=== PATIENT | female | born 1960 | race Caucasian/White ===

== ENCOUNTER → 2019-02-07 | Outpatient (CLI) | payer BC ==
--- NOTE | 2019-02-07 14:02 | Diagnostic Imaging Report ---
INDICATION: Abdominal pain and cramping. TIME OF EXAMINATION: 1:49 PM. FINDINGS: Moderate stool throughout the colon is noted. The bowel gas pattern appears to be nonobstructed. No free air is identified. No pathologic calcifications are seen. IMPRESSION: Moderate stool. The study is otherwise unremarkable. Dictated by: Dictated on workstation # [id number]
== END ==
LOC: RAD FS 13:37
PROVIDERS: ATTEND Nurse Practitioner Family
DX: R10.84 Generalized abdominal pain (principal); R25.2 Cramp and spasm
CPT/HCPCS: 74019

== ENCOUNTER → 2019-08-02 | Outpatient (CLI) | payer BC ==
--- NOTE | 2019-08-02 17:43 | Diagnostic Imaging Report ---
INDICATION: Leg pain on the right. TIME OF EXAM: 01:57 p.m. FINDINGS: Frontal and lateral views of the lumbar spine were obtained. Curvature and alignment is normal. Vertebral body heights are maintained. No acute compression fracture is seen. There is significant multilevel degenerative disc disease with variable disc space narrowing and marginal spurring. There is vacuum disc at all levels. Lower lumbar facet arthropathy is seen. Abdominal aorta is partially calcified. IMPRESSION: Lumbar spondylosis. No acute bony abnormality is detected. Dictated by: Dictated on workstation # [id number]
== END ==
LOC: RAD FS 13:43
PROVIDERS: ATTEND Nurse Practitioner
DX: M47.816 Spondylosis without myelopathy or radiculopathy, lumbar region (principal)
CPT/HCPCS: 72100

== ENCOUNTER → 2020-11-21 | Outpatient (CLI) | payer OTHER ==
--- NOTE | 2020-11-21 15:43 | Diagnostic Imaging Report ---
CLINICAL INDICATION: Patient is having right hip and back pain. EXAM: MRI of the lumbar spine performed without IV contrast. Sagittal T2, sagittal T1, sagittal T2 fat-sat, and axial T2. COMPARISON: X-ray of the lumbar spine dated 08/02/2019. FINDINGS: There is no acute lumbar spine fracture. There are Modic type I degenerative signal changes involving the L2-L3 endplate and L3-L4 endplates. There are hypertrophic spurs throughout the lumbar spine and multilevel facet arthropathy. There is no significant paraspinal soft tissue abnormality. The visualized portions of the distal thoracic spinal cord, conus medullaris, and cauda equina nerve roots are unremarkable. The conus medullaris tip is seen at the L1-L2 intervertebral level. T10 through L1: There are multilevel diffuse disk bulges seen at the T10-T11, T11-T12, and T12-L1 levels. There is mild central canal narrowing. There is moderate bilateral T10-T11 neuroforamen narrowing and facet arthropathy. There is no significant bony neuroforamen narrowing involving the T11-T12 and T12-L1 levels. L1-L2: There is mild bilateral facet arthropathy. There is no significant central spinal canal or neural foramen narrowing. L2-L3: There is grade 1 retrolisthesis of L2 on L3. There is a diffuse disk bulge with severe loss of disk space height and endplate irregularity. There is moderate bilateral facet arthropathy and ligamentum flavum buckling. There is severe central canal stenosis, moderate right neuroforamen narrowing, and severe left neuroforamen narrowing. L3-L4: There is diffuse disk bulge with mild loss of disk space height and moderate bilateral facet arthropathy. There is prominence of the posterior epidural fat. There is moderate central canal stenosis. There is [id number] bilateral neuroforamen narrowing. L4-L5: There is a diffuse disk bulge with moderate loss of disk space height. There is severe right facet arthropathy/hypertrophy and moderate left facet arthropathy. There is severe central canal stenosis, severe right neuroforamen narrowing, and [id number] left neuroforamen narrowing. L5-S1: There is grade 1 retrolisthesis of L5 on S1. There is a diffuse disk bulge with severe loss of disk space height. There is moderate bilateral facet arthropathy. There is ligamentum flavum buckling. There is no significant central canal stenosis. There is severe bilateral neuroforamen narrowing. IMPRESSION: 1: There is severe multilevel lumbar spine degenerative disk disease which is described in detail above. 2: There is grade 1 retrolisthesis of L2 on L3. Dictated by: Dictated on workstation # [id number]
--- NOTE | 2020-11-21 15:50 | Diagnostic Imaging Report ---
EXAMINATION: MRI right hip without contrast from 11/21/2020. TECHNIQUE: Multiplanar, multisequence non contrast-enhanced MRI of the right lower extremity was accomplished. INDICATION: Right hip pain, low back pain. FINDINGS: The osseous structures demonstrate normal signal intensity with no fractures or acute abnormality appreciated. The hip joint spaces bilaterally are symmetric and intact. No significant joint effusions appreciated. The visualized tendons are intact. Visualized musculature is within normal limits. Visualized intrapelvic structures are unremarkable. The labrum is poorly characterized without intra-articular contrast. IMPRESSION: 1. No acute abnormality. Unremarkable appearance of the hip. Dictated by: Dictated on workstation # [id number]
== END ==
LOC: RAD 13:15
PROVIDERS: ATTEND Pediatrics
DX: M51.17 Intervertebral disc disorders with radiculopathy, lumbosacral region (principal); M48.07 Spinal stenosis, lumbosacral region; M43.17 Spondylolisthesis, lumbosacral region; M47.26 Other spondylosis with radiculopathy, lumbar region; M51.15 Intervertebral disc disorders with radiculopathy, thoracolumbar region; M48.05 Spinal stenosis, thoracolumbar region; M47.25 Other spondylosis with radiculopathy, thoracolumbar region
CPT/HCPCS: 72148; 73721